=== PATIENT | male | born 1940 | race Caucasian/White ===

== ENCOUNTER 2020-05-14 13:30 | Emergency (ER) | payer MEDICARE, OTHER ==
[2020-05-14] MEDS ORDERED: NORCO 5-325 TA1 EACH PO (15:33)
[2020-05-14 18:31] LABS: CLARITY (FLUID) TURBID; COLOR (FLUID) RED
[2020-05-15 11:57] LABS: RBC (FLUID) 4266000 RBC/uL; WBC (FLUID) 2438 WBC/uL
== END 2020-05-14 16:39 | disposition home or self-care (01) ==
LOC: FER 13:30
PROVIDERS: Emergency Medicine
DX: M25.461 Effusion, right knee (principal); I10 Essential (primary) hypertension; Z88.5 Allergy status to narcotic agent; Z79.01 Long term (current) use of anticoagulants; Z79.899 Other long term (current) drug therapy
CPT/HCPCS: 36415; 73564; 87070; 87205; 89051